=== PATIENT | male | born 1950 | race Caucasian/White ===

== ENCOUNTER 2021-03-06 14:59 | Emergency (ER) | payer MEDICARE, OTHER ==
--- NOTE | 2021-03-06 15:13 | ED Physician Documentation ---
PD HPI BACK PAIN - Stated complaint Stated Complaint: LOWER BACK PX - Chief complaint Chief Complaint: Back Pain - Additional information Additional information: 70-year-old male presenting to the emergency department with back pain. Endorse s for 3 weeks left low back pain. States has had similar pain in the past. Reports that initially back pain began will lifting a heavy box. States that pain had subsequently been improving however yesterday he saw a chiropractor. Initially had some increased soreness after having the chiropractor adjusted his back but woke up this morning with excruciating pain in his left low back and hip. Denies any new trauma to the area. Denies any fever, saddle paresthesias, changes in bowel or bladder habit, lower extremity weakness. Review of Systems Ten Systems: 10 systems reviewed and negative Constitutional: denies: Fever Eyes: denies: Loss of vision Ears: denies: Loss of hearing Nose: denies: Rhinorrhea / runny nose Throat: denies: Dental pain / toothache Cardiac: denies: Chest pain / pressure Respiratory: denies: Dyspnea GI: denies: Abdominal Pain : denies: Dysuria Skin: denies: Rash Musculoskeletal: reports: Back pain PD PAST MEDICAL HISTORY - Past Medical History Past Medical History: Yes Cardiovascular: Hypertension Respiratory: None Neuro: None Endocrine/Autoimmune: None GI: None : None HEENT: None Psych: None Musculoskeletal: None Derm: None - Past Surgical History Past Surgical History: No - Present Medications Home Medications: Ambulatory Orders Medication Instructions Recorded Confirmed Acetaminophen [Tylenol] 650 mg PO Q6H PRN #30 tablet 03/06/21 Ibuprofen [Motrin] 800 mg PO Q8H PRN #30 tablet 03/06/21 Lidocaine Patch 5% [Lidoderm Patch] 1 each TOP DAILY #30 patch 03/06/21 methocarbamoL [Robaxin] 500 mg PO Q6H #20 tablet 03/06/21 - Allergies Allergies/Adverse Reactions: Allergies Allergy/AdvReac Type Severity Reaction Status Date / Time No Known Drug Allergies Allergy Verified 03/06/21 15:03 - Social History Does the pt smoke?: No Smoking Status: Never smoker Does the pt drink ETOH?: Yes ETOH Use: Wine Does the pt have substance abuse?: No - Immunizations Immunizations are current?: No Immunizations: Other immun current PD ED PE NORMAL - General General: Alert and oriented X 3 - HEENT HEENT: Atraumatic - Neck Neck: Supple, no meningeal sign - Cardiac Cardiac: RRR, No gallop - Respiratory Respiratory: No respiratory distress, Clear bilaterally - Abdomen Abdomen: Normal bowel sounds, Non tender - Male Male : Deferred - Rectal Rectal: Deferred - Back Back: No CVA TTP - Derm Derm: Normal color PD ED PE EXPANDED - Back Back: Normal ROM, Soft tissue tenderness (Left paraspinal muscle tenderness to palpation). No: Vertebral tenderness, Limited ROM, Straight leg raise + R, Straight leg raise + L, CVA TTP left Results - Vitals Vitals: Vital Signs - 24 hr 03/06/21 03/06/21 15:03 15:31 Temperature 36.5 C Heart Rate 72 71 Respiratory 18 18 Rate Blood Pressure 205/93 H 181/89 H O2 Saturation 99 100 Oxygen O2 Source Room air PD MEDICAL DECISION MAKING - ED course Complexity details: re-evaluated patient, d/w patient ED course: Patient is 70-year-old male presenting with 3-week history of left low back pain. Minimally traumatic event reported 3 weeks ago in which she felt a pop after lifting a heavy box. Was doing well at home however pain returned after being adjusted by chiropractor. Denied any red flags that would be concerning for spinal cord compression. Was given Chana, Decadron, Lidoderm patch here in the emergency department with significant symptomatic relief. Was able to ambulate without difficulty. Will discharge on an ongoing course of regimented Motrin, Tylenol, Robaxin and Lidoderm. Encourage careful follow-up with primary care or return precautions prior to given Departure - Departure Disposition: 01 Home, Self Care Clinical Impression: Back pain Instructions: ED Low Back Pain Injury, IBUPROFEN (Adult) Prescriptions: Lidocaine Patch 5% [Lidoderm Patch] 1 each TOP DAILY #30 patch Ibuprofen [Motrin] 800 mg PO Q8H PRN #30 tablet PRN Reason: PAIN &/OR FEVER methocarbamoL [Robaxin] 500 mg PO Q6H #20 tablet Acetaminophen [Tylenol] 650 mg PO Q6H PRN #30 tablet PRN Reason: PRN PAIN &/OR FEVER Comments: Thank you for allowing us to care for you today at [facility]. Your prescriptions were sent electronically to [facility] in [place] I be discharging with some medications he can take to help control your symptoms. Please fill these prescriptions and take as directed. Please stay well-hydrated. I recommend activity as tolerated is complete immobility can make back pain such as which you are experiencing worse. Please follow-up with your primary care doctor in order to make an appointment for medical recheck in the next few days. If it anytime you develop any new or worsening symptoms, particularly for developing worsening pain, fever, numbness or tingling around your anus or genitalia, or weakness in any of your extremities please return to the emergency department immediately for further evaluation and treatment.
[2021-03-06] MEDS ORDERED: oxyCODONE 5 MG TABLET PO STA (15:57)
[2021-03-06] MEDS ORDERED: LIDOCAINE PATCH 5% TOP STA (15:58)
[2021-03-06] MEDS ORDERED: CHERRY SYRUP 10 ML UDC PO ONE (16:01)
[2021-03-06] MEDS ORDERED: DEXAMETHASONE 10 MG/ML VIAL PO STA (16:01)
[2021-03-06 16:52] VITALS: BP 170/81
== END 2021-03-06 16:57 | disposition home or self-care (01) ==
LOC: ED 14:59
DX: M54.50 Low back pain, unspecified (principal); I10 Essential (primary) hypertension
CPT/HCPCS: 99283; A9270

== ENCOUNTER 2023-06-05 08:09 | Outpatient (CLI) | payer MEDICARE ==
[2023-06-05 08:25] LABS: BASOPHILS # (AUTO) 0.1 10^3/uL (0.0-0.1); BASOPHILS % (AUTO) 0.8 %; EOSINOPHILS # (AUTO) 0.2 10^3/uL (0.0-0.7); EOSINOPHILS % (AUTO) 2.3 %; HCT - HEMATOCRIT 46.7 % (42.0-52.0); HGB - HEMOGLOBIN 15.4 g/dL (14.0-18.0); LYMPHOCYTES # (AUTO) 2.5 10^3/uL (1.5-3.5); LYMPHOCYTES % (AUTO) 37.7 %; MEAN CORPUSCULAR HEMOGLOBIN 32.9 pg (27.0-31.0); MEAN CORPUSCULAR VOLUME 99.8 fL (80.0-94.0); MONOCYTES # (AUTO) 0.9 10^3/uL (0.0-1.0); MONOCYTES % (AUTO) 13.7 %; NEUTROPHILS % (AUTO) 45.3 %; PLT - PLATELET COUNT 231 10^3/uL (130-450); RED BLOOD COUNT 4.68 10^6/uL (4.70-6.10); RED CELL DISTRIBUTION WIDTH 12.2 % (12.0-15.0); WHITE BLOOD COUNT 6.5 x10^3/uL (4.8-10.8)
[2023-06-05 08:51] LABS: ALBUMIN 4.3 g/dL (3.2-5.5); ALBUMIN/GLOBULIN RATIO 1.5 (1.0-2.2); ALKALINE PHOSPHATASE 49 IU/L (42-121); ALT ALANINE AMINOTRANSFERASE 18 IU/L (10-60); AST ASPARTATE AMINOTRANSFERASE 20 IU/L (10-42); BILIRUBIN,TOTAL 1.3 mg/dL (0.2-1.0); BUN - BLOOD UREA NITROGEN 23 mg/dL (6-20); CALCIUM 10.1 mg/dL (8.5-10.3); CARBON DIOXIDE - CO2 29 mmol/L (21-32); CHLORIDE 102 mmol/L (101-111); CHOL/HDL RATIO 3.1 (<5.0); CHOLESTEROL 177 mg/dL; CREATININE 1.1 mg/dL (0.6-1.3); GFR - MDRD 65 (>89); GLUCOSE 118 mg/dL (74-104); HDL CHOLESTEROL 57 mg/dL; LDL CHOLESTEROL,CALCULATED 100 mg/dL; LDL/HDL RATIO 1.8 (<3.6); POTASSIUM 4.3 mmol/L (3.5-4.5); SODIUM 138 mmol/L (135-145); TOTAL PROTEIN 7.1 g/dL (6.4-8.9); TRIGLYCERIDES 98 mg/dL (48-352); VLDL CHOLESTEROL 20 mg/dL
== END 2023-06-05 08:10 | disposition home or self-care (01) ==
LOC: LAB 08:09
PROVIDERS: ATTEND Physician Assistant Medical
DX: I48.91 Unspecified atrial fibrillation (principal); Z12.5 Encounter for screening for malignant neoplasm of prostate
CPT/HCPCS: 36415; 80053; 80061; 84443; 85025; G0103; 83721; 84153

== ENCOUNTER 2023-07-23 15:33 | Emergency (ER) | payer MEDICARE ==
--- NOTE | 2023-07-23 15:49 | ED Physician Documentation ---
History of Present Illness - Stated complaint Stated Complaint: FALL/FACE LAC - Chief complaint Chief Complaint: General - Additonal information Additional information: 73 yo male Presents emergency department for superficial facial abrasions. Patient says that he was walking through the [place] excellently lost his balance and fell screen being his face onto brush. He says that he did not hit his head did not lose consciousness but his who is an ex nurse told him to come to the emergency department for antibiotics because of the superficial abrasions to his right cheek. He also recently started Eliquis blood thinners.Bleeding is well-controlled. PD PAST MEDICAL HISTORY - Past Medical History Cardiovascular: Hypertension Respiratory: None Neuro: None Endocrine/Autoimmune: None GI: None : None HEENT: None Psych: None Musculoskeletal: None Derm: None - Past Surgical History Past Surgical History: No - Present Medications Home Medications: Ambulatory Orders Medication Instructions Recorded Confirmed Acetaminophen [Tylenol] 650 mg PO Q6H PRN #30 tablet 03/06/21 Ibuprofen [Motrin] 800 mg PO Q8H PRN #30 tablet 03/06/21 Lidocaine Patch 5% [Lidoderm Patch] 1 each TOP DAILY #30 patch 03/06/21 methocarbamoL [Robaxin] 500 mg PO Q6H #20 tablet 03/06/21 - Allergies Allergies/Adverse Reactions: Allergies Allergy/AdvReac Type Severity Reaction Status Date / Time No Known Drug Allergies Allergy Verified 07/23/23 15:45 - Social History Does the pt smoke?: No Smoking Status: Never smoker Does the pt drink ETOH?: Yes Does the pt have substance abuse?: No - Immunizations Immunizations are current?: No Immunizations: Other immun current PD ED PE NORMAL - Vitals Vital signs reviewed: Yes - General General: Alert and oriented X 3, No acute distress, Well developed/nourished - HEENT HEENT: PERRL - Neck Neck: No bony TTP - Cardiac Cardiac: RRR - Derm Derm: Other (right cheek abrasion) - Neuro Neuro: Alert and oriented X 3, 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 He had superficial abrasions to his right cheek and his told him to come into the emergency department to get antibiotics to prevent from infection. I informed the patient that oral antibiotics are not necessary as his abrasion is very superficial. I did inform the patient that given that he is recently started on blood thinners he may need a head CT patient declined head CT at this point in time to that he did not hit his head and does not feel like this is necessary. Bacitracin applied to his right facial abrasion return precautions given all questions answered patient safe for discharge. Departure - Departure Disposition: 01 Home, Self Care Clinical Impression: Facial abrasion Qualifiers: Encounter type: initial encounter Qualified Code(s): S00.81XA - Abrasion of other part of head, initial encounter Instructions: ED Abrasion Comments: Thank you for trusting us with your care. As we discussed I do not believe that the superficial abrasion on your right face in your arms wanted to be on prophylactic antibiotics. We have cleansed the wound on your right face and we recommend applying bacitracin and [id number] medication that you can molded goods spot picker at any pharmacy keep it nice and moist and it should heal well on its own. As we discussed being on blood thinners you are at more risk of bleeding and so we did talk about doing a head CT which you opted out of doing at this point in time. If you start to develop any nausea vomiting weakness on one side your body, increased fatigue or any other concerning neurological symptoms please present back to the emergency department immediately. Forms: PCP List Discharge Date/Time: 07/23/23 17:10
[2023-07-23] MEDS: BACITRACIN ZINC OINT 1 PACKET TOP STA (16:45)
[2023-07-23 17:20] VITALS: BP 140/88; O2SAT 100
== END 2023-07-23 17:10 | disposition home or self-care (01) ==
LOC: ED 15:33
DX: S00.81XA Abrasion of other part of head, initial encounter (principal); W18.39XA Other fall on same level, initial encounter; I10 Essential (primary) hypertension; Z79.01 Long term (current) use of anticoagulants
CPT/HCPCS: 99282; 99283; A9270

== ENCOUNTER 2023-08-11 07:36 | Outpatient (CLI) | payer MEDICARE ==
[2023-08-11 08:19] LABS: CALCIUM 9.6 mg/dL (8.5-10.3); CREATININE 1.1 mg/dL (0.6-1.3); POTASSIUM 4.4 mmol/L (3.5-4.5)
== END 2023-08-11 07:37 | disposition home or self-care (01) ==
LOC: LAB 07:36
PROVIDERS: ATTEND Nurse Practitioner
DX: I48.19 Other persistent atrial fibrillation (principal); I50.21 Acute systolic (congestive) heart failure
CPT/HCPCS: 36415; 80048

== ENCOUNTER 2023-10-19 12:38 | Emergency (ER) | payer MEDICARE ==
[2023-10-19 13:19] LABS: BASOPHILS # (AUTO) 0.1 10^3/uL (0.0-0.1); BASOPHILS % (AUTO) 0.7 %; EOSINOPHILS % (AUTO) 0.4 %; HCT - HEMATOCRIT 45.4 % (42.0-52.0); HGB - HEMOGLOBIN 14.8 g/dL (14.0-18.0); LYMPHOCYTES # (AUTO) 2.2 10^3/uL (1.5-3.5); LYMPHOCYTES % (AUTO) 31.9 %; MEAN CORPUSCULAR HEMOGLOBIN 33.6 pg (27.0-31.0); MEAN CORPUSCULAR HGB CONC 32.6 g/dL (32.0-36.0); MEAN CORPUSCULAR VOLUME 102.9 fL (80.0-94.0); MONOCYTES # (AUTO) 0.8 10^3/uL (0.0-1.0); MONOCYTES % (AUTO) 10.8 %; NEUTROPHILS # (AUTO) 3.9 10^3/uL (1.5-6.6); NEUTROPHILS % (AUTO) 55.9 %; PLT - PLATELET COUNT 234 10^3/uL (130-450); RED BLOOD COUNT 4.41 10^6/uL (4.70-6.10); RED CELL DISTRIBUTION WIDTH 12.7 % (12.0-15.0)
[2023-10-19 13:32] LABS: ALBUMIN 4.7 g/dL (3.2-5.5); ALBUMIN/GLOBULIN RATIO 1.6 (1.0-2.2); BILIRUBIN,TOTAL 0.9 mg/dL (0.2-1.0); CALCIUM 10.2 mg/dL (8.5-10.3); CREATININE 1.1 mg/dL (0.6-1.3); POTASSIUM 4.9 mmol/L (3.5-4.5); TOTAL PROTEIN 7.6 g/dL (6.4-8.9)
[2023-10-19] MEDS: diltiaZEM INJ 5 MG/ML VIAL IVP STA (13:55)
[2023-10-19 15:01] LABS: B. PARAPERTUSSIS- RESP PCR PAN NOT DETECTED; B. PERTUSSIS- RESP PCR PANEL NOT DETECTED; C. PNEUMONIAE- RESP PCR PANEL NOT DETECTED; CORONAVIRUS 229E-RESP PCR NOT DETECTED; CORONAVIRUS HKU1-RESP PCR NOT DETECTED; CORONAVIRUS NL63-RESP PCR NOT DETECTED; CORONAVIRUS OC43-RESP PCR NOT DETECTED; HUMAN METAPNEUMOVIRUS NOT DETECTED; INFLUENZA A- RESP PCR PANEL NOT DETECTED; INFLUENZA B - RESP PCR PANEL NOT DETECTED; M. PNEUMONIAE- RESP PCR PANEL NOT DETECTED; PARAINFLUENZA VIRUS 1 NOT DETECTED; PARAINFLUENZA VIRUS 2 NOT DETECTED; PARAINFLUENZA VIRUS 3 NOT DETECTED; PARAINFLUENZA VIRUS 4 NOT DETECTED; RHINOVIRUS/ENTEROVIRUS NOT DETECTED; RSV- RESP PCR PANEL NOT DETECTED; SARS-CoV-2 -RESP PCR PANEL NOT DETECTED
--- NOTE | 2023-10-19 15:18 | ED Physician Documentation ---
History of Present Illness - Stated complaint Stated Complaint: GEN WEAKNESS - Chief complaint Chief Complaint: Cardiac - History obtained from History obtained from: Patient - Additonal information Additional information: The patient is brought to the emergency department by his for chief complaint of generalized weakness. He states he was feeling fairly fine yesterday but today, he was out working in the yard and he began to just feel tired. He states his legs felt weak and he had to go sit down. He felt slightly sweaty. He denies any chest pain or shortness of breath. He has had diarrhea for about the last week on and off and states that it usually starts in the afternoon. No nausea or vomiting. He is also been struggling with a lot of anxiety in the mornings, usually starting with thinking about all the things he needs to get done during the day. The patient states that he was recently diagnosed with A-fib a couple of months ago and had a cardioversion at that time. He states that the results were good for about a week but then he developed A-fib again. He has been followed by cardiology and is scheduled for stress test in a week. He is not sure what the next step is for his A-fib but says that they have discussed ablation in the past. The patient states he is currently on metoprolol twice a day but he does not know if it is long-acting or regular. He is also on valsartan and Pradaxa. He takes some aldosterone as well. The patient denies any fevers or chills. No cough. No urinary symptoms. He states he had a lot of anxiety this morning and that this has become an increasing problem. He was started on Zoloft 3 weeks ago for this but does not really feel like it is doing anything. He thinks that his overall reason for having anxiety is that he was in very good health before his A-fib diagnosis, but he feels like his medical problems have taken over his life now and they are not getting better. He states he is generally very healthy and works out most days. PD PAST MEDICAL HISTORY - Past Medical History Past Medical History: Yes Cardiovascular: Hypertension, Atrial fibrillation Respiratory: None Neuro: None Endocrine/Autoimmune: None GI: None : None HEENT: None Psych: Anxiety Musculoskeletal: None Derm: None Other Past Medical History: Cardioversion August 2023 - Past Surgical History Past Surgical History: No - Present Medications Home Medications: Ambulatory Orders Medication Instructions Recorded Confirmed Acetaminophen [Tylenol] 650 mg PO Q6H PRN #30 tablet 03/06/21 Ibuprofen [Motrin] 800 mg PO Q8H PRN #30 tablet 03/06/21 Lidocaine Patch 5% [Lidoderm Patch] 1 each TOP DAILY #30 patch 03/06/21 methocarbamoL [Robaxin] 500 mg PO Q6H #20 tablet 03/06/21 - Allergies Allergies/Adverse Reactions: Allergies Allergy/AdvReac Type Severity Reaction Status Date / Time No Known Drug Allergies Allergy Verified 10/19/23 12:42 - Social History Does the pt smoke?: No Smoking Status: Never smoker Does the pt drink ETOH?: Yes Does the pt have substance abuse?: No - Immunizations Immunizations are current?: No Immunizations: Other immun current PD ED PE NORMAL - Vitals Vital signs reviewed: Yes - General General: Alert and oriented X 3, No acute distress, Well developed/nourished - HEENT HEENT: Atraumatic, EOMI, Moist mucous membranes - Neck Neck: Supple, no meningeal sign - Cardiac Cardiac: No murmur, Strong equal pulses, Other (Mildly tachycardic rate, irregularly irregular rhythm.) - Respiratory Respiratory: No respiratory distress, Clear bilaterally - Abdomen Abdomen: Soft, Non tender, Non distended - Derm Derm: Normal color, Warm and dry, No rash - Extremities Extremities: No deformity, No edema, No calf tenderness / cord - Neuro Neuro: Other (Alert, grossly intact.) - Psych Psych: Normal mood, Normal affect Results - Vitals Vitals: Vital Signs - 24 hr 10/19/23 10/19/23 10/19/23 12:42 13:55 14:03 Temperature 36.8 C Heart Rate 70 122 H 62 Respiratory 16 18 18 Rate Blood Pressure 148/94 H 157/110 H 101/69 O2 Saturation 100 100 100 10/19/23 14:06 Temperature Heart Rate 70 Respiratory 18 Rate Blood Pressure 116/84 H O2 Saturation 97 Oxygen O2 Source Room air - EKG (time done) 1248 EKG releavant findings:: EKG personally interpreted by author of this note. Relevant findings are: Rate: Rate (enter#) (126) Rhythm: Atrial fibrillation [place]: Normal, Posterior hemiblock Intervals: RBBB QRS: Normal Ischemia: ST depression - Labs Labs: Laboratory Tests 10/19/23 10/19/23 10/19/23 13:04 13:04 13:04 WBC 7.0 RBC 4.41 L Hgb 14.8 Hct 45.4 MCV 102.9 H MCH 33.6 H MCHC 32.6 RDW 12.7 Plt Count 234 MPV 10.0 Neut # (Auto) 3.9 Lymph # (Auto) 2.2 [place] # (Auto) 0.8 Eos # (Auto) 0.0 Baso # (Auto) 0.1 Absolute Nucleated RBC 0.00 Nucleated RBC % 0.0 Sodium 135 Potassium 4.9 H Chloride 101 Carbon Dioxide 27 Anion Gap 7.0 BUN 22 H Creatinine 1.1 Estimated GFR (MDRD) 65 L Glucose 103 Calcium 10.2 Total Bilirubin 0.9 AST 27 ALT 21 Alkaline Phosphatase 51 Troponin I High Sens B-Natriuretic Peptide 258 H Total Protein 7.6 Albumin 4.7 Globulin 2.9 Albumin/Globulin Ratio 1.6 Lipase 47 Nasal Adenovirus (PCR) Nasal B. parapertussis DNA (PCR) Nasal Coronavir 229E PCR Nasal Coronavir HKU1 PCR Nasal Coronavir NL63 PCR Nasal Coronavir OC43 PCR Nasal Enterovir/Rhinovir PCR Nasal Influenza B PCR Nasal Influenza A PCR Nasal Parainfluen 1 PCR Nasal Parainfluen 2 PCR Nasal Parainfluen 3 PCR Nasal Parainfluen 4 PCR Nasal RSV (PCR) Nasal B.pertussis DNA PCR Nasal C.pneumoniae (PCR) Tyrel Human Metapneumo PCR Nasal M.pneumoniae (PCR) Nasal SARS-CoV-2 (PCR) 10/19/23 10/19/23 10/19/23 13:04 14:00 14:47 WBC RBC Hgb Hct MCV MCH MCHC RDW Plt Count MPV Neut # (Auto) Lymph # (Auto) [place] # (Auto) Eos # (Auto) Baso # (Auto) Absolute Nucleated RBC Nucleated RBC % Sodium Potassium Chloride Carbon Dioxide Anion Gap BUN Creatinine Estimated GFR (MDRD) Glucose Calcium Total Bilirubin AST ALT Alkaline Phosphatase Troponin I High Sens 16.3 13.1 B-Natriuretic Peptide Total Protein Albumin Globulin Albumin/Globulin Ratio Lipase Nasal Adenovirus (PCR) NOT DETECTED Nasal B. parapertussis DNA (PCR) NOT DETECTED Nasal Coronavir 229E PCR NOT DETECTED Nasal Coronavir HKU1 PCR NOT DETECTED Nasal Coronavir NL63 PCR NOT DETECTED Nasal Coronavir OC43 PCR NOT DETECTED Nasal Enterovir/Rhinovir PCR NOT DETECTED Nasal Influenza B PCR NOT DETECTED Nasal Influenza A PCR NOT DETECTED Nasal Parainfluen 1 PCR NOT DETECTED Nasal Parainfluen 2 PCR NOT DETECTED Nasal Parainfluen 3 PCR NOT DETECTED Nasal Parainfluen 4 PCR NOT DETECTED Nasal RSV (PCR) NOT DETECTED Nasal B.pertussis DNA PCR NOT DETECTED Nasal C.pneumoniae (PCR) NOT DETECTED Tyrel Human Metapneumo PCR NOT DETECTED Nasal M.pneumoniae (PCR) NOT DETECTED Nasal SARS-CoV-2 (PCR) NOT DETECTED PD Medical Decision Making - ED course Complexity details: reviewed old records, reviewed results, re-evaluated patient, considered differential, d/w patient, d/w family ED course: The patient was treated with IV fluids and an IV dose of Cardizem 25 mg. His symptoms were nonspecific and it was unclear exactly what had caused him to feel weak this afternoon. He responded well to the Cardizem with his heart rate normalizing from the low 100s to 120s, down to the 80s to 90s, though still in A-fib. His BNP was in the 200s and his troponin was 16. Remainder of his labs were unremarkable. Given his diarrhea and feeling rundown today, I did order a respiratory PCR panel as well. The patient is unable to urinate after the first liter of fluid and we are given him a second. He is pending chest x-ray, repeat troponin, UA, and respiratory PCR panel. He is signed out to Dr. Wills at change of shift, pending the above and final disposition. Departure - Departure Forms: PCP List
[2023-10-19] MEDS: SODIUM CHLORIDE 0.9% 1,000 ML IV STA (15:45)
--- NOTE | 2023-10-19 15:52 | XRAY Report ---
PROCEDURE: Chest 1V INDICATIONS: weakness, a fib, chf TECHNIQUE: One view of the chest was acquired. COMPARISON: None. FINDINGS: Surgical changes and devices: None. Lungs and pleura: No pleural effusions or pneumothorax. Lungs are clear. Mediastinum: Mediastinal contours appear normal. Heart size is normal. Bones and chest wall: No suspicious bony lesions. Overlying soft tissues appear unremarkable. IMPRESSION: No acute cardiopulmonary process. Reviewed by: Wisam Daniel MD on 10/19/2023 3:50 PM PDT Approved by: Wisam Daniel MD on 10/19/2023 3:50 PM PDT Station ID: [id number]
--- NOTE | 2023-10-19 15:56 | ED Physician Documentation ---
ED Addendum - Addendum Addendum: 10/19/23 15:[address] Canales at about 3:30 PM. Briefly 73-year-old gentleman feeling generalized weak today, and is in borderline rapid A-fib which improved after the administration of diltiazem and IV fluids as well as some Xanax as there was an anxiety component. On signout to me still pending was a urinalysis which has not been obtained at this time, a rapid viral panel which was negative, and a chest x-ray read which interpreted independently by me looks fairly normal. He was seen and examined at the bedside and is feeling much better but, back to normal. He had had diarrhea and then was working excessively this morning so presume he got a little dehydrated and then his A-fib got out of control. We discussed potentially increasing his metoprolol dose but he says his baseline heart rate recently has been 70. Disposition: Discharged home Condition: Stable Diagnoses: 1. Rapid atrial fibrillation 2. Dehydration 3. Anxiety
[2023-10-19 16:08] VITALS: BP 170/115; O2SAT 100
[2023-10-19] MEDS: ALPRAZolam 0.25 MG TABLET PO STA (16:10)
== END 2023-10-19 16:20 | disposition home or self-care (01) ==
LOC: ED 12:38
DX: I48.91 Unspecified atrial fibrillation (principal); E86.0 Dehydration; F41.9 Anxiety disorder, unspecified; I10 Essential (primary) hypertension; Z79.899 Other long term (current) drug therapy
CPT/HCPCS: 36415; 71045; 80053; 83690; 83880; 84484; 85025; 87633; 93005; 96374; 99284; A9270; 81001; 81003; 87086